=== PATIENT | female | born 1995 | race Caucasian/White ===

== ENCOUNTER 2020-11-18 01:36 | Inpatient (IN) | payer BC, SELFPAY ==
[2020-11-18] VITALS (91 sets, daily range): BP systolic 80–131; BP diastolic 45–103; PULSE 84–213; RESP 16–20; TEMP 36.7–37.2; O2SAT 96–100; BMI 36.3
--- NOTE | 2020-11-18 01:36 | LDADM ---
This patient, Arlene Hsu, was admitted to Labor/Delivery/Recovery 105 on 11/18/20 at 02:01. Plans for labor, pain management and were discussed with patient. Patient/family oriented to hospital policies and general routines including ID bracelet, bed and alarms, visiting hours, pain management, procedures, bathroom and other care routines, personal items, smoking policy, room service/diet and guest tray routines, security routines, and visiting hours. Patient/Family are encouraged to report perceived risks to care and to ask questions if they do not understand what they are told or what they should do. See OBIX for further documentation.
[2020-11-18 02:53] LABS: Basophils Absolute Auto 0.1 K/mm3 (0.0-0.1); Basophils Percent Auto 0.4 % (0.2-1.2); Eosinophils Absolute Auto 0.1 K/mm3 (0-0.3); Eosinophils Percent Auto 1.1 % (0-4.4); Hematocrit 38.9 % (37.0-47.0); Hemoglobin 13.1 g/dL (12.0-15.0); Immature Granulocyte Absolute 0.13 K/mm3 (0.00-0.031); Immature Granulocyte Percent A 1.1 % (0-0.5); Lymphocytes Absolute Auto 2.15 K/mm3 (0.9-3.2); Lymphocytes Percent Auto 18.2 % (18.3-44.2); Mean Corpuscular HGB Conc 33.7 g/dl (32-36); Mean Corpuscular Hemoglobin 31.6 pg (26-34); Mean Corpuscular Volume 93.7 fl (80-100); Mean Platelet Volume 9.8 fl (7.4-10.4); Monocytes Absolute Auto 1.1 K/mm3 (0.1-0.6); Monocytes Percent Auto 9.5 % (2.6-8.5); Neutrophils Absolute Auto 8.3 K/mm3 (1.3-6.7); Neutrophils Percent Auto 69.7 % (45.5-73.1); Platelet Count Result 215 k/mm3 (150-375); Red Blood Count 4.15 M/mm3 (4.2-5.4); White Blood Count 11.8 K/mm3 (4.5-10.0)
[2020-11-18 03:09] LABS: Amphetamine Screen Urine Negative (Negative); Barbiturate Screen Urine Negative (Negative); Benzodiazepines Screen Urine Negative (Negative); Cannabinoid Screen Urine Negative (Negative); Cocaine Screen Urine Negative (Negative); Methadone Screen Urine Negative (Negative); Opiate Screen Urine Negative (Negative); Phencyclidine Screen Urine Negative (Negative)
[2020-11-18] MEDS: LACTATED RINGERS 1,000 ML 125 ML IV CONT ×2 (03:13→03:55)
--- NOTE | 2020-11-18 03:57 | WPDANESEPPF ---
Anes - Initial Pre Proc Eval Procedure: labor epidural Date/Time: 11/18/20 03:57 Surgeon: Ioana Kuhn DO Pre Op Diagnosis: labor pain Pre Op Diagnosis: water broke Patient Data Age: 25 Gender: F Height: 1.6 m Weight: 93.2 kg Last Vital Signs Pulse 122 H 11/18/20 03:54 BP 121/69 11/18/20 03:54 Pulse Ox 98 11/18/20 03:52 Allergies Allergy/AdvReac Type Severity Reaction Status Date / Time No Known Allergies Allergy Unknown Unverified 09/07/15 19:51 Home Medications Medication Instructions Recorded Confirmed Type No Home Medications 11/18/20 11/18/20 History Laboratory Tests 11/18/20 11/18/20 11/18/20 02:45 02:45 02:45 WBC 11.8 K/mm3 H K/mm3 (4.5-10.0) RBC 4.15 M/mm3 L M/mm3 (4.2-5.4) Hgb 13.1 g/dL g/dL (12.0-15.0) Hct 38.9 % % (37.0-47.0) MCV 93.7 fl fl (80-100) MCH 31.6 pg pg (26-34) MCHC 33.7 g/dl g/dl (32-36) RDW 13.0 % % (11.5-14.5) Plt Count 215 k/mm3 k/mm3 (150-375) MPV 9.8 fl fl (7.4-10.4) Immature Gran % (Auto) 1.1 % H % (0-0.5) Neut % (Auto) 69.7 % % (45.5-73.1) Lymph % (Auto) 18.2 % L % (18.3-44.2) Jessamine % (Auto) 9.5 % H % (2.6-8.5) Eos % (Auto) 1.1 % % (0-4.4) Baso % (Auto) 0.4 % % (0.2-1.2) Lymph # (Auto) 2.15 K/mm3 K/mm3 (0.9-3.2) Jessamine # (Auto) 1.1 K/mm3 H K/mm3 (0.1-0.6) Eos # (Auto) 0.1 K/mm3 K/mm3 (0-0.3) Baso # (Auto) 0.1 K/mm3 K/mm3 (0.0-0.1) Abs Immat Gran (auto) 0.13 K/mm3 H K/mm3 (0.00-0.031) Absolute Neuts (auto) 8.3 K/mm3 H K/mm3 (1.3-6.7) Absolute Nucleated RBC 0.0 K/mm3 K/mm3 (0.0-0.012) Nucleated RBC % 0.0 % % (0.0-0.2) Urine Opiates Screen Urine Methadone Screen Ur Barbiturates Screen Ur Phencyclidine Scrn Ur Amphetamine Screen U Benzodiazepines Scrn Urine Cocaine Screen U Cannabinoids Screen RPR Pending Blood Type O Positive Antibody Screen Negative 11/18/20 02:46 WBC RBC Hgb Hct MCV MCH MCHC RDW Plt Count MPV Immature Gran % (Auto) Neut % (Auto) Lymph % (Auto) Jess[place] % (Auto) Eos % (Auto) Baso % (Auto) Lymph # (Auto) Jessamine # (Auto) Eos # (Auto) Baso # (Auto) Abs Immat Gran (auto) Absolute Neuts (auto) Absolute Nucleated RBC Nucleated RBC % Urine Opiates Screen Negative (Negative) Urine Methadone Screen Negative (Negative) Ur Barbiturates Screen Negative (Negative) Ur Phencyclidine Scrn Negative (Negative) Ur Amphetamine Screen Negative (Negative) U Benzodiazepines Scrn Negative (Negative) Urine Cocaine Screen Negative (Negative) U Cannabinoids Screen Negative (Negative) RPR Blood Type Antibody Screen Patient hx anesthesia problems: none Family hx anesthesia problems: none PMFSH Social History Social History Smoking status: Never smoker Gender identity (if verbalized by the patient): Female Spiritual care concerns: No Anes - Eval Final PreProcedure Day of Procedure 11/18/20 03:57 Patient weight: obese ASA classification: II Anesthesia type and monitoring: regional epidural Informed Consent: The patient's anesthetic plan and its attendant risks and benefits were discussed with the patient/family/POA. Questions were solicited and answers provided to the satisfaction of the patient/family/POA.
[2020-11-18] MEDS: SODIUM CHLORIDE 0.9% IV 300 ML 600 ML I-UTERINE (04:44)
[2020-11-18] MEDS: SODIUM CHLORIDE 0.9% IV 1,000 ML 150 ML I-UTERINE (05:15)
[2020-11-18] MEDS: OXYTOCIN 30 UNITS/NS 500 ML 30 UNITS/500 ML BAG 999 UNITS IV CONT (06:29)
--- NOTE | 2020-11-18 06:41 | WPDHPUPDATE1 ---
History and Physical Update Update Date/Time: 11/18/20 06:41 History and Physical has been reviewed, including an updated exam of the patient. There are NO changes in the patient's condition. Risks, benefits, and alternatives have been discussed and questions answered. Patient agrees to proceed with procedure.
--- NOTE | 2020-11-18 06:41 | WPDOBADMIT ---
Obstetrics - Admit Note Admission Note: record reviewed. No pertinent additions to the history and/or any subsequent changes in the physical findings that are not consistent with the expected course of the were found. Additions to the history and/or subsequent changes in the physical findings follow. None.
--- NOTE | 2020-11-18 06:41 | PM.OBPRVD ---
OB - Delivery Note Procedure Route of delivery: Episiotomy description: None Laceration Description: None Specimen: Yes Quantitative Blood Loss (ml): 300 Anesthesia type: Epidural Disposition: floor Narrative: Patient prepped and draped in usual manner for this procedure. Maternal expulsive efforts readily delivered vertex with nuchal cord noted x2 and readily reduced. Rest of baby was delivered cord clamped and cut and placenta was then delivered. Cervix vagina vulva were inspected no lacerations or tears. This point seizure was considered terminated with immediate postoperative condition of mother and baby both excellent. [place] Baby Weeks of gestation at delivery: 37 Infant gender: Male Weight (pounds): 4 Weight (ounces): 3 Placenta delivery description: Expressed score one minute: 8 score five minutes: 9
[2020-11-18] MEDS: ceFAZolin 2 GM/D5W 50 ML 2 GM/50 ML BAG IVPB (06:44)
[2020-11-18] MEDS: OXYTOCIN 30 UNITS/NS 500 ML 30 UNITS/500 ML BAG 125 UNITS IV CONT (07:00)
[2020-11-18] MEDS: IBUPROFEN 600 MG TABLET PO ×3 (07:39→20:07)
[2020-11-18] MEDS: BENZOCAINE 20% AER SPR (*SP) 56 GM CAN 1 SPRAY TOPICAL ×2 (07:39→16:47)
--- NOTE | 2020-11-18 09:47 | PC.NURSE ---
Patient transferred to post room # 281 per wheelchair. Support person present. Oriented to unit, room, information board, rooming in, admission packet and security measures. Patient verbalizes understanding.
[2020-11-18 10:35] LABS: Rapid Plasma Reagin Non-Reactive (NonReactive)
--- NOTE | 2020-11-18 15:00 | PC.NURSE ---
Consult with pt., mother reports she wishes to bottle feed today and begin pumping later today. Discussed and the 37 week infant, establishing may have its own unique set of circumstances due to their immaturity. infants may be less alert, have less stamina and may have issues with latch, suck and swallow. With the possible inability to have a vigorous suck swallow, infants may not be adequately stimulating mother and/or able to have adequate milk transfer. Pumping should be considered for additional stimulation and to offer EBM as part of supplement if needed. Breast pump provided due to []. Instructions given on breast pump care and usage, pumping schedule, nipple care, and collection and storage of breast milk. Encouraged [id number], breast massage and manual expression to stimulate supply. Mother will call out when ready to begin pumping
[2020-11-19 03:05] VITALS: BP 105/72; PULSE 86; RESP 16; TEMP 36.8
[2020-11-19] MEDS: IBUPROFEN 600 MG TABLET PO ×3 (03:15→16:20)
[2020-11-19 06:01] LABS: Hematocrit 39.1 % (37.0-47.0); Hemoglobin 12.8 g/dL (12.0-15.0)
[2020-11-19] MEDS: ACETAMINOPHEN 325 MG TABLET 650 MG PO (07:13)
[2020-11-19] MEDS: DOCUSATE SODIUM 100 MG CAPSULE PO ×2 (07:14→16:21)
[2020-11-19] MEDS: MULTIVIT/MIN/PREN/FOL AC/IRON TABLET 1 TAB PO (07:14)
[2020-11-19] MEDS: BENZOCAINE 20% AER SPR (*SP) 56 GM CAN 1 SPRAY TOPICAL (07:15)
[2020-11-19 08:00] VITALS: BP 105/72; BP 111/72; PULSE 86; PULSE 87; RESP 16; RESP 18; TEMP 36.1; TEMP 36.8; O2SAT 99
--- NOTE | 2020-11-19 08:00 | P.PNOB_ITS ---
OB - PN: Subj Subjective Date/time seen: 11/19/20 08:00 PPD #1 Arlene reports doing well today. Her pain is controlled. She has tolerated regular diet w/o issue. Her bleeding is light. She has voided and passed gas. She is ambulating w/o symptoms of anemia. She is bottle feeding but planning to pump. Would like her son to get circumcised. She denies CP, SOB, REVELES, vision changes, fever, chills, dizziness or palpitations. OB - PN: Obj Data Labs CBC & Chem 7: 11/19/20 04:06 Labs: Laboratory Results - last 24 hr 11/19/20 04:06 Hgb 12.8 Hct 39.1 OB - PN A/P Assessment and Plan (1) Normal vaginal delivery: Code(s): O80 - Encounter for full-term uncomplicated delivery Status: Acute Plan day: 1 Plan: routine care and discharge home (tomorrow) Comments: - f/u in 4wks - ER return precautions: bleeding, n/v/abd pain, fever, HTN - Pelvic rest; take meds as prescribed Time Spent With Patient Time: Total time spent is greater than 50% in coordination of care (as docu mented) at patient's floor/unit and/or counseling patient: Review of Systems Review of Systems: All systems reviewed & are unremarkable except as noted in HPI and below (HPI) Exam Const: General: cooperative, comfortable and no acute distress Nutritional Appearance: obese Resp: Effort & Inspection: normal respiratory effort and able to speak in complete sentences Auscultation: clear to auscultation bilaterally Cardio: Rate: regular rate GI: Inspection: normal to inspection and non-distended GI Palp: No abdominal tenderness and Yes Soft to palpation Auscultation: normal bowel sounds : Other: fundus firm Skin: General skin exam: normal color (sun burnt w/ blister on shoulder) Neuro: General: patient oriented x3 Extrem: General: normal to inspection Psych: Appearance: grossly normal Affect: normal affect Attitude: cooperative
--- NOTE | 2020-11-19 08:45 | PC.NURSE ---
Consult with pt., mother states she has not initiated pumping and will call out today when she is ready. Reveiwed stimulation and milk supply with any colostrum obtained will be given to infant as part of feeding.
--- NOTE | 2020-11-19 08:54 | WPDANLDPN2 ---
Anes-Prog Note L&D Date/Time: 11/19/20 08:54 Comfortable throughout: labor and delivery Neuraxial method: epidural Epidural/Spinal procedure site: clean & non-tender Neuro status: Neuro function grossly intact. Cardiovascular status: normal Respiratory status: normal Airway patency: baseline Mental status: baseline Post-Op hydration status: normal Vital Signs: Last Vital Signs Temp 36.8 C 11/19/20 03:05 Pulse 86 11/19/20 03:05 Resp 16 11/19/20 03:05 BP 105/72 11/19/20 03:05 Pulse Ox 99 11/18/20 13:32 Pain score (VAS): 3 Post-procedural complaints: none Patient feedback: Patient satisfied with anesthetic care.
[2020-11-19 18:33] VITALS: BP 122/76; PULSE 89; RESP 16; TEMP 36.6
[2020-11-20] MEDS: IBUPROFEN 600 MG TABLET PO ×2 (00:05→09:38)
--- NOTE | 2020-11-20 07:00 | PC.NURSE ---
PT introductions made and plan of care discussed per post , pain management, breast/bottle feeding, daily care activities and pending discharge to home> PT instructions and care discussed per one to one discussion and mom baby care guide and demonstration. PT verbalized understanding of such care. No barriers to learning noted. PT and fob both received instructions and care.
[2020-11-20 07:55] VITALS: BP 126/76; PULSE 82; RESP 20; TEMP 36.4; O2SAT 98
[2020-11-20] MEDS: ACETAMINOPHEN 325 MG TABLET 650 MG PO (09:37)
[2020-11-20] MEDS: DOCUSATE SODIUM 100 MG CAPSULE PO (09:39)
[2020-11-20 09:40] VITALS: PULSE 82; RESP 20; O2SAT 98
--- NOTE | 2020-11-20 12:29 | PC.NURSE ---
Addendum entered by Carlie Jane RN 11/20/20 13:26: consult [id number] Original Note: Consult with pt., mother reports she is not pumping regularly and will begin to pump on schedule once home. Mother states she pumps without difficulties/discomfort. Offered to evaluate flange size, mother declines need. Reviewed stimulation and milk supply. Mother states she has a double electric pump for home use and comfortable with use. Reviewed breast pump care and usage, pumping schedule, nipple care, and collection and storage of breast milk. Encouraged [id number], breast massage and manual expression to stimulate supply. Patient verbalizes and demonstrates understanding of instructions.
--- NOTE | 2020-11-20 12:52 | PC.NURSE ---
PT discharged to home ambulatory accompanied by fob and infant and taken to waiting car. Follow up appts confirmed
--- NOTE | 2020-12-03 08:59 | PM.OBDSVD ---
DS: Admitting Diagnosis Admitting Diagnosis Admitting Diagnosis: OB - DS: Summary OB Procedures : None OB Procedures Intrapartum: Spontaneous Vag Delivery OB Procedures: : None Time Spent with Patient Time attestation: Total time spent providing and/or coordinating discharge services: DS: Data Data Completed and Pending Completed studies during hospitalization: Pending at discharge 11/18/20 06:32 Surgical [PTH] Routine Discharge Plan Discharge Attending physician on discharge: Rosanna Archibald Consulting providers: Albert Cortes Discharging Clinician: Rosanna Archibald Anticipated Discharge Date/Time: 11/20/20 12:00 Patient Disposition: Home, Self-Care Activity: pelvic rest Diet: regular Discharge Instructions: Education: Mom and Baby Guide Given to: Mother Follow-Up: Call your delivering provider's office for an appointment to be seen in: 4 Weeks Mom and baby should come to the [facility] for the follow-up appointment. Appointment Date/Time: November 21, 2020 at 8:00 am What to expect at your follow-up visit: Blood Pressure Check Call [phone] if you are unable to keep your appointment time. BREAST CARE: * Wear a snug supportive bra. * For engorgement discomfort: Breast Feeding: * Apply warm moist washcloths * Express milk as needed to relieve engorgement * Wear loose clothing Bottle Feeding: * May apply ice packs * For sore nipples: * Identify correct latch-on * Apply warm moist washcloths before and after nursing * Air dry nipples after nursing * May apply Lansinoh cream to nipples PERINEAL CARE: * Until bleeding stops, use your dallin bottle after urinating * Change your pad frequently throughout the day * You may take sitz baths several times a day (fill your bathtub with warm water and soak for 20 minutes.) Do NOT bathe in the water * No tub baths until seen by your physician - You may shower ACTIVITY: * Rest as much as possible. * Do not exercise or lift anything heavier than your baby (such as laundry or other children.) * Avoid stairs or driving as much as possible. * Do not put anything into the vagina. No douching, tampons, or sexual activity until seen by physician. NOTIFY PHYSICIAN IF YOU HAVE ANY QUESTIONS OR IF ANY OF THE FOLLOWING SYMPTOMS OCCUR: * If your perineum becomes red, swollen, or more painful than what you have experienced in the hospital. * If your vaginal bleeding becomes foul smelling. * If your vaginal bleeding becomes more heavy than a period or if your bleeding changes from pink to bright red. However, you may pass an occasional walnut-sized clot once or twice for the first week . * If you experience a sharp, shooting pain in you calves. * If you discover a hard, reddened area on your breast or if you experience flu-like symptoms. * If you have a fever of 100.4 or greater DIET: * Eat regular, well-balanced meals. * Drink plenty of fluids daily. If , drink to thirst. Patient Instructions: Antibiotic Form Stand Alone Forms: General Discharge Information Follow-up/Referrals: Bi Lucio MD [Physician] - 4 Weeks Discharge Medications: New acetaminophen [Mapap (acetaminophen)] 325 mg Tablet 650 mg PO Q6H PRN (Reason: Mild Pain (1-3) Or Headache) 10 Days Qty: 60 RF: 0 ibuprofen 600 mg Tablet 600 mg PO Q6H PRN (Reason: Cramping) 10 Days Qty: 40 RF: 0 No Action No Home Medications RF: 0 Date of admission: 11/18/20 02:01 Primary Care Provider: PHYSICIAN,INDUSTRIAL SALES MANAGER Admitting Provider: Bi Lucio Attending physician on admission: Rosanna Archibald Condition: Stable
== END 2020-11-20 12:52 | disposition home or self-care (01) | DRG 560 ==
LOC: ANHLDR 02:21 → ANHOB2 11-19 13:05 → ANHLDR 11-21 11:48 → ANHOB2 11-21 11:48
PROVIDERS: Admitting Provider Obstetrics & Gynecology; Visit Provider Obstetrics & Gynecology
DX: O69.81X0 Labor and delivery complicated by cord around neck, without compression, not applicable or unspecified (principal); Z3A.37 37 weeks gestation of pregnancy; Z37.0 Single live birth
CPT/HCPCS: 36415; 80307; 84112; 85014; 85018; 85025; 86592; 86850; 86900; 86901; 88307; A9270; J0690; J2590; J7030; J7120